=== PATIENT | male | born 1985 | race Caucasian/White ===

== ENCOUNTER 2019-09-28 08:17 | Emergency (ER) | payer OTHER ==
[~2019-09-28] VITALS: Ht 165.1 cm; Wt 59.0 kg
[2019-09-28] MEDS ORDERED: LIDOCAINE HCL/PF 1% 10 MG/ML 5ML VIAL IJ ONE (10:30)
[2019-09-28] MEDS ORDERED: BACITRACIN ZINC OINT UDPKT TOP ONE (10:30)
[2019-09-28 12:39] VITALS: BP 130/78
== END 2019-09-28 12:57 | disposition home or self-care (01) ==
LOC: ER 08:17
DX: S61.012A Laceration without foreign body of left thumb without damage to nail, initial encounter (principal); W26.0XXA Contact with knife, initial encounter; Y93.89 Activity, other specified; Y92.89 Other specified places as the place of occurrence of the external cause; Z88.6 Allergy status to analgesic agent
CPT/HCPCS: 12001; 99283; J3490; Z7610